=== PATIENT | male | born 1950 | race Hispanic/Latino ===

== ENCOUNTER → 2023-02-04 | Outpatient (CLI) | payer OTHER | END | disposition home or self-care (01) | LOC: RAH 08:29 | PROVIDERS: ATTEND Internal Medicine Gastroenterology | DX: K44.9 Diaphragmatic hernia without obstruction or gangrene (principal); R13.10 Dysphagia, unspecified; K21.9 Gastro-esophageal reflux disease without esophagitis | CPT/HCPCS: 74240 ==

== ENCOUNTER → 2023-07-12 | Outpatient (CLI) | payer OTHER ==
[~2023-07-12] MED LIST: ALBUMIN (HUMAN) 25% 200 ML IV SCH
[2023-07-12 10:48] LABS: BASOPHILS # (AUTO) 0.05 K/uL (0.00-0.20); BASOPHILS % (AUTO) 0.6 % (0.0-5.0); EOSINOPHILS # (AUTO) 0.03 K/uL (0.00-0.70); EOSINOPHILS % (AUTO) 0.4 % (0.0-8.0); HEMATOCRIT 33.3 % (42-54); IMMATURE GRANULOCYTE ABSOLUTE 0.03 K/uL (0-1); LYMPHOCYTES # (AUTO) 0.5 K/uL (1.0-4.8); LYMPHOCYTES % (AUTO) 6.6 % (21.0-51.0); MEAN CORPUSCULAR HEMOGLOBIN 31.5 pg (27.0-33.0); MEAN CORPUSCULAR VOLUME 95.4 fL (79-99); MONOCYTES # (AUTO) 0.5 K/uL (0.1-1.0); MONOCYTES % (AUTO) 5.7 % (3.0-13.0); NEUTROPHILS # (AUTO) 6.8 K/uL (1.8-7.7); NEUTROPHILS % (AUTO) 86.3 % (40.0-77.0); PLATELET COUNT (AUTO) 254 K/uL (130-400); RED BLOOD CELL COUNT(AUTO) 3.49 MIL/uL (4.50-6.20); RED CELL DISTRIBUTION WIDTH 14.7 % (11.0-15.5); WHITE BLOOD COUNT (AUTO) 7.9 K/uL (4.8-10.8)
[2023-07-12 11:10] LABS: ALBUMIN 2.3 g/dL (3.5-5.0); BILIRUBIN,TOTAL 0.6 mg/dL (0.2-1.0); CREATININE 4.7 mg/dL (0.5-1.5); POTASSIUM 3.7 mmol/L (3.5-5.1); TOTAL PROTEIN, SERUM 7.8 g/dL (6.0-8.3)
[2023-07-12 14:02] LABS: ALBUMIN,BODY FLUID 1.7 g/dL; TOTAL PROTEIN,BODY FLUID 4.8 g/dL
[2023-07-12 14:41] LABS: BODY FLUID RBC 90 /cu. mm.; BODY FLUID WBC 253 /cu. mm.
[2023-07-12 15:05] LABS: APPEARANCE BODY FLUID CLEAR (CLEAR); COLOR,BODY FLUID YELLOW (LT YELLOW); SPECIMENTYPE,BODY FLUID ASCITES; TOTAL VOLUME,BODY FLUID 15000 mL
[2023-07-12 15:31] LABS: BF LYMPHOCYTE 7 %; BF MACROPHAGE 85; BF MONOCYTE 1 %; BF OTHER CELLS 1; BF TOTAL CELLS COUNTED 100
== END | disposition home or self-care (01) ==
LOC: RAH 08:44
PROVIDERS: ATTEND Internal Medicine Gastroenterology
DX: R18.8 Other ascites (principal); K21.9 Gastro-esophageal reflux disease without esophagitis; Z79.01 Long term (current) use of anticoagulants
CPT/HCPCS: 49083; 84157; 80053; 85025; 89051; 87071; 87076; 87205; 82042; 36415; 88305; 88112; P9046; C1729; 96365

== ENCOUNTER → 2023-07-26 | Outpatient (CLI) | payer OTHER ==
[2023-07-26 09:02] LABS: INR 1.02 (0.85-1.15); PROTHROMBIN TIME 11.8 SEC (9.6-11.6)
[2023-07-26 09:03] LABS: PARTIAL THROMBOPLASTIN TIME 35.8 SEC (26.3-35.5)
[2023-07-26 14:02] LABS: BODY FLUID RBC 0 /cu. mm.; BODY FLUID WBC 293 /cu. mm.
[2023-07-26 14:03] LABS: APPEARANCE BODY FLUID CLEAR (CLEAR); SPECIMENTYPE,BODY FLUID ASCITES
[2023-07-26 14:04] LABS: COLOR,BODY FLUID YELLOW (LT YELLOW); TOTAL VOLUME,BODY FLUID 12200 mL
[2023-07-26 14:11] LABS: BF LYMPHOCYTE 20 %; BF MACROPHAGE 53; BF MONOCYTE 25 %; BF TOTAL CELLS COUNTED 100
== END | disposition home or self-care (01) ==
LOC: RAH 07:54
PROVIDERS: ATTEND Internal Medicine Gastroenterology
DX: R18.8 Other ascites (principal); M19.90 Unspecified osteoarthritis, unspecified site; E78.5 Hyperlipidemia, unspecified; K21.9 Gastro-esophageal reflux disease without esophagitis; R13.10 Dysphagia, unspecified; I73.89 Other specified peripheral vascular diseases; I13.2 Hypertensive heart and chronic kidney disease with heart failure and with stage 5 chronic kidney disease, or end stage renal disease; N18.6 End stage renal disease; Z99.2 Dependence on renal dialysis; Z90.49 Acquired absence of other specified parts of digestive tract; Z79.01 Long term (current) use of anticoagulants; Z79.899 Other long term (current) drug therapy
CPT/HCPCS: 49083; 89051; 85610; 85730; 87071; 87205; 36415; C1729; 96365

== ENCOUNTER → 2023-08-09 | Outpatient (CLI) | payer OTHER ==
[2023-08-09 15:43] LABS: ALBUMIN,BODY FLUID 1.5 g/dL; TOTAL PROTEIN,BODY FLUID 3.8 g/dL
[2023-08-09 16:10] LABS: BODY FLUID RBC 383 /cu. mm.; BODY FLUID WBC 100 /cu. mm.
[2023-08-09 16:17] LABS: APPEARANCE BODY FLUID CLEAR (CLEAR); COLOR,BODY FLUID YELLOW (LT YELLOW); SPECIMENTYPE,BODY FLUID ASCITES; TOTAL VOLUME,BODY FLUID 7700 mL
[2023-08-09 18:48] LABS: BF LYMPHOCYTE 3 %; BF MACROPHAGE 92; BF OTHER CELLS 2; BF TOTAL CELLS COUNTED 100
== END | disposition home or self-care (01) ==
LOC: RAH 09:07
PROVIDERS: ATTEND Internal Medicine Gastroenterology
DX: R18.8 Other ascites (principal); E78.5 Hyperlipidemia, unspecified; I73.9 Peripheral vascular disease, unspecified; K21.9 Gastro-esophageal reflux disease without esophagitis; M19.90 Unspecified osteoarthritis, unspecified site; R93.2 Abnormal findings on diagnostic imaging of liver and biliary tract; I13.2 Hypertensive heart and chronic kidney disease with heart failure and with stage 5 chronic kidney disease, or end stage renal disease; N18.6 End stage renal disease; I50.9 Heart failure, unspecified; Z79.01 Long term (current) use of anticoagulants; Z98.890 Other specified postprocedural states; Z90.49 Acquired absence of other specified parts of digestive tract; Z99.2 Dependence on renal dialysis
CPT/HCPCS: 49083; 84157; 89051; 87071; 87205; 82042; 88305; 88112; P9046; C1729

== ENCOUNTER → 2023-08-23 | Outpatient (CLI) | payer OTHER ==
[2023-08-23 11:35] LABS: APPEARANCE BODY FLUID CLEAR (CLEAR); COLOR,BODY FLUID YELLOW (LT YELLOW); SPECIMENTYPE,BODY FLUID ASCITES; TOTAL VOLUME,BODY FLUID 7200 mL
[2023-08-23 11:38] LABS: ALBUMIN,BODY FLUID 1.5 g/dL; TOTAL PROTEIN,BODY FLUID 3.7 g/dL
[2023-08-23 12:12] LABS: BODY FLUID RBC 0 /cu. mm.; BODY FLUID WBC 533 /cu. mm.
[2023-08-23 12:35] LABS: BF LYMPHOCYTE 9 %; BF MESOTHELIAL 81 %; BF MONOCYTE 10 %; BF TOTAL CELLS COUNTED 100
== END | disposition home or self-care (01) ==
LOC: RAH 09:30
PROVIDERS: ATTEND Internal Medicine Gastroenterology
DX: R18.8 Other ascites (principal); M19.90 Unspecified osteoarthritis, unspecified site; E78.5 Hyperlipidemia, unspecified; R13.10 Dysphagia, unspecified; R93.3 Abnormal findings on diagnostic imaging of other parts of digestive tract; K21.9 Gastro-esophageal reflux disease without esophagitis; E11.51 Type 2 diabetes mellitus with diabetic peripheral angiopathy without gangrene; I13.2 Hypertensive heart and chronic kidney disease with heart failure and with stage 5 chronic kidney disease, or end stage renal disease; I50.9 Heart failure, unspecified; N18.6 End stage renal disease; Z99.2 Dependence on renal dialysis; Z79.01 Long term (current) use of anticoagulants; Z79.899 Other long term (current) drug therapy; Z90.49 Acquired absence of other specified parts of digestive tract
CPT/HCPCS: 49083; 84157; 89051; 87071; 87076; 87205; 82042; 88305; 88112; P9046; C1729

== ENCOUNTER → 2023-09-19 | Outpatient (CLI) | payer OTHER ==
[2023-09-19 10:25] LABS: BASOPHILS # (AUTO) 0.05 K/uL (0.00-0.20); BASOPHILS % (AUTO) 0.7 % (0.0-5.0); EOSINOPHILS # (AUTO) 0.19 K/uL (0.00-0.70); EOSINOPHILS % (AUTO) 2.5 % (0.0-8.0); HEMATOCRIT 28.1 % (42-54); IMMATURE GRANULOCYTE ABSOLUTE 0.04 K/uL (0-1); LYMPHOCYTES # (AUTO) 0.8 K/uL (1.0-4.8); LYMPHOCYTES % (AUTO) 10.2 % (21.0-51.0); MEAN CORPUSCULAR HEMOGLOBIN 31.4 pg (27.0-33.0); MEAN CORPUSCULAR HGB CONC 32.4 g/dL (32.0-36.0); MEAN CORPUSCULAR VOLUME 96.9 fL (79-99); MONOCYTES # (AUTO) 0.6 K/uL (0.1-1.0); MONOCYTES % (AUTO) 7.3 % (3.0-13.0); NEUTROPHILS % (AUTO) 78.8 % (40.0-77.0); PLATELET COUNT (AUTO) 238 K/uL (130-400); RED CELL DISTRIBUTION WIDTH 13.9 % (11.0-15.5); WHITE BLOOD COUNT (AUTO) 7.7 K/uL (4.8-10.8)
[2023-09-19 10:36] LABS: INR 0.98 (0.85-1.15); PROTHROMBIN TIME 11.4 SEC (9.6-11.6)
[2023-09-19 10:37] LABS: PARTIAL THROMBOPLASTIN TIME 36.5 SEC (26.3-35.5)
[2023-09-19 10:45] LABS: ALBUMIN 2.2 g/dL (3.5-5.0); BILIRUBIN,TOTAL 0.4 mg/dL (0.2-1.0); CREATININE 4.7 mg/dL (0.5-1.5); POTASSIUM 3.9 mmol/L (3.5-5.1); TOTAL PROTEIN, SERUM 7.2 g/dL (6.0-8.3)
[2023-09-19] MEDS: ALBUMIN (HUMAN) 25% 200 ML IV SCH (12:45)
[2023-09-19 15:11] LABS: BODY FLUID RBC 88 /cu. mm.; BODY FLUID WBC 153 /cu. mm.
[2023-09-19 15:14] LABS: APPEARANCE BODY FLUID SLIGHTLY CLOUDY (CLEAR); COLOR,BODY FLUID YELLOW (LT YELLOW); SPECIMENTYPE,BODY FLUID ASCITES; TOTAL VOLUME,BODY FLUID 9500 mL
[2023-09-19 17:29] LABS: BF LYMPHOCYTE 6 %; BF MACROPHAGE 87; BF MONOCYTE 1 %; BF OTHER CELLS 4; BF TOTAL CELLS COUNTED 100
== END | disposition home or self-care (01) ==
LOC: RAH 09:05
PROVIDERS: ATTEND Internal Medicine Gastroenterology
DX: R18.8 Other ascites (principal); E11.22 Type 2 diabetes mellitus with diabetic chronic kidney disease; I13.2 Hypertensive heart and chronic kidney disease with heart failure and with stage 5 chronic kidney disease, or end stage renal disease; N18.6 End stage renal disease; I50.9 Heart failure, unspecified; E78.5 Hyperlipidemia, unspecified; K21.9 Gastro-esophageal reflux disease without esophagitis; M19.90 Unspecified osteoarthritis, unspecified site; Z90.49 Acquired absence of other specified parts of digestive tract; Z98.890 Other specified postprocedural states; Z79.01 Long term (current) use of anticoagulants; Z79.899 Other long term (current) drug therapy; Z99.2 Dependence on renal dialysis
CPT/HCPCS: 49083; 80053; 85025; 89051; 85610; 85730; 87071; 87205; 36415; P9046; C1729; 96365

== ENCOUNTER → 2023-10-03 | Outpatient (CLI) | payer OTHER ==
[2023-10-03] MEDS: ALBUMIN (HUMAN) 25% 200 ML IV SCH (09:56)
[2023-10-03 14:37] LABS: SPECIMENTYPE,BODY FLUID ASCITES
[2023-10-03 14:38] LABS: APPEARANCE BODY FLUID CLEAR (CLEAR); COLOR,BODY FLUID YELLOW (LT YELLOW); TOTAL VOLUME,BODY FLUID 7000 mL
[2023-10-03 14:47] LABS: BODY FLUID RBC 216 /cu. mm.; BODY FLUID WBC 163 /cu. mm.
[2023-10-03 17:24] LABS: BF LYMPHOCYTE 49 %; BF MACROPHAGE 35; BF MESOTHELIAL 8 %; BF MONOCYTE 4 %; BF TOTAL CELLS COUNTED 100
== END | disposition home or self-care (01) ==
LOC: RAH 08:48
PROVIDERS: ATTEND Internal Medicine Gastroenterology
DX: R18.8 Other ascites (principal); E11.22 Type 2 diabetes mellitus with diabetic chronic kidney disease; I13.2 Hypertensive heart and chronic kidney disease with heart failure and with stage 5 chronic kidney disease, or end stage renal disease; N18.6 End stage renal disease; I50.9 Heart failure, unspecified; E78.5 Hyperlipidemia, unspecified; M19.90 Unspecified osteoarthritis, unspecified site; K21.9 Gastro-esophageal reflux disease without esophagitis; Z90.49 Acquired absence of other specified parts of digestive tract; Z98.890 Other specified postprocedural states; Z79.899 Other long term (current) drug therapy; Z99.2 Dependence on renal dialysis
CPT/HCPCS: 49083; 89051; 87071; 87205; P9046; C1729

== ENCOUNTER 2023-11-14 09:30 | Emergency (ER) | payer OTHER ==
[~2023-11-14] VITALS: Ht 175.3 cm; Wt 68.5 kg
[2023-11-14] MEDS: ACETAMINOPHEN 500 MG TABLET PO ONE (10:00)
[2023-11-14 10:02] LABS: BASOPHILS # (AUTO) 0.03 K/uL (0.00-0.20); BASOPHILS % (AUTO) 0.5 % (0.0-5.0); EOSINOPHILS # (AUTO) 0.07 K/uL (0.00-0.70); EOSINOPHILS % (AUTO) 1.1 % (0.0-8.0); HEMATOCRIT 23.6 % (42-54); IMMATURE GRANULOCYTE ABSOLUTE 0.02 K/uL (0-1); LYMPHOCYTES # (AUTO) 0.6 K/uL (1.0-4.8); LYMPHOCYTES % (AUTO) 9.2 % (21.0-51.0); MEAN CORPUSCULAR HEMOGLOBIN 31.5 pg (27.0-33.0); MEAN CORPUSCULAR HGB CONC 33.5 g/dL (32.0-36.0); MONOCYTES # (AUTO) 0.4 K/uL (0.1-1.0); MONOCYTES % (AUTO) 6.2 % (3.0-13.0); NEUTROPHILS # (AUTO) 5.5 K/uL (1.8-7.7); NEUTROPHILS % (AUTO) 82.7 % (40.0-77.0); PLATELET COUNT (AUTO) 241 K/uL (130-400); RED BLOOD CELL COUNT(AUTO) 2.51 MIL/uL (4.50-6.20); RED CELL DISTRIBUTION WIDTH 14.2 % (11.0-15.5); WHITE BLOOD COUNT (AUTO) 6.6 K/uL (4.8-10.8)
[2023-11-14 10:09] LABS: CREATININE 4.8 mg/dL (0.5-1.3); POTASSIUM 3.6 mmol/L (3.5-5.1)
[2023-11-14 10:17] LABS: ALBUMIN 2.4 g/dL (3.5-5.0); BILIRUBIN,TOTAL 0.4 mg/dL (0.2-1.0)
[2023-11-14 13:16] VITALS: BP 133/60; PULSE 71; RESP 14; O2SAT 98
== END 2023-11-14 13:15 | disposition home or self-care (01) ==
LOC: EDH 09:30
DX: I12.0 Hypertensive chronic kidney disease with stage 5 chronic kidney disease or end stage renal disease (principal); E11.22 Type 2 diabetes mellitus with diabetic chronic kidney disease; N18.6 End stage renal disease; D63.1 Anemia in chronic kidney disease; R55 Syncope and collapse; E87.1 Hypo-osmolality and hyponatremia; Z99.2 Dependence on renal dialysis
CPT/HCPCS: 36415; 70450; 80053; 84484; 85025; 93005

== ENCOUNTER → 2023-11-14 | Outpatient (CLI) | payer OTHER ==
[2023-11-19] MEDS: ALBUMIN (HUMAN) 25% 200 ML IV SCH (09:59)
[2023-11-19 13:26] LABS: BODY FLUID RBC 1983 /cu. mm.; BODY FLUID WBC 809 /cu. mm.
[2023-11-19 14:22] LABS: APPEARANCE BODY FLUID SLIGHTLY CLOUDY (CLEAR); COLOR,BODY FLUID YELLOW (LT YELLOW); SPECIMENTYPE,BODY FLUID ASCITES; TOTAL VOLUME,BODY FLUID 8000 mL
[2023-11-19 14:26] LABS: BF LYMPHOCYTE 14 %; BF MACROPHAGE 51; BF MONOCYTE 33 %; BF TOTAL CELLS COUNTED 100
== END | disposition home or self-care (01) ==
LOC: RAH 08:31
PROVIDERS: ATTEND Internal Medicine Gastroenterology
DX: R18.8 Other ascites (principal); E78.5 Hyperlipidemia, unspecified; K21.9 Gastro-esophageal reflux disease without esophagitis; M19.90 Unspecified osteoarthritis, unspecified site; I13.2 Hypertensive heart and chronic kidney disease with heart failure and with stage 5 chronic kidney disease, or end stage renal disease; E11.22 Type 2 diabetes mellitus with diabetic chronic kidney disease; I50.9 Heart failure, unspecified; N18.6 End stage renal disease; R93.89 Abnormal findings on diagnostic imaging of other specified body structures; R13.10 Dysphagia, unspecified; Z79.899 Other long term (current) drug therapy; Z90.49 Acquired absence of other specified parts of digestive tract; Z99.2 Dependence on renal dialysis
CPT/HCPCS: 96365; 89051; 87071; 87205; P9046

== ENCOUNTER → 2024-01-16 | Outpatient (CLI) | payer OTHER ==
[~2024-01-16] MED LIST changes: +ALBUMIN (HUMAN) 25% 200 ML IV ONE; -ALBUMIN (HUMAN) 25% 200 ML IV SCH
[2024-01-16 14:18] LABS: BODY FLUID RBC 79 /cu. mm.; BODY FLUID WBC 151 /cu. mm.
[2024-01-16 14:59] LABS: BF LYMPHOCYTE 74 %; BF MACROPHAGE 20; BF MONOCYTE 5 %; BF TOTAL CELLS COUNTED 100
[2024-01-16 15:02] LABS: SPECIMENTYPE,BODY FLUID ASCITES
[2024-01-16 15:03] LABS: APPEARANCE BODY FLUID SLIGHTLY CLOUDY (CLEAR); COLOR,BODY FLUID YELLOW (LT YELLOW); TOTAL VOLUME,BODY FLUID 4600 mL
== END | disposition home or self-care (01) ==
LOC: RAH 09:33
PROVIDERS: ATTEND Internal Medicine Gastroenterology
DX: R18.8 Other ascites (principal); R13.10 Dysphagia, unspecified; R93.3 Abnormal findings on diagnostic imaging of other parts of digestive tract; I73.89 Other specified peripheral vascular diseases; R93.89 Abnormal findings on diagnostic imaging of other specified body structures; I13.2 Hypertensive heart and chronic kidney disease with heart failure and with stage 5 chronic kidney disease, or end stage renal disease; I50.9 Heart failure, unspecified; N18.6 End stage renal disease; M19.90 Unspecified osteoarthritis, unspecified site; K21.9 Gastro-esophageal reflux disease without esophagitis; E78.5 Hyperlipidemia, unspecified; Z90.49 Acquired absence of other specified parts of digestive tract; Z79.899 Other long term (current) drug therapy
CPT/HCPCS: 49083; 89051; P9046; C1729

== ENCOUNTER → 2024-01-30 | Outpatient (CLI) | payer OTHER ==
[2024-01-30 12:04] LABS: BASOPHILS # (AUTO) 0.04 K/uL (0.00-0.20); BASOPHILS % (AUTO) 0.7 % (0.0-5.0); EOSINOPHILS # (AUTO) 0.14 K/uL (0.00-0.70); EOSINOPHILS % (AUTO) 2.6 % (0.0-8.0); HEMATOCRIT 30.9 % (42-54); IMMATURE GRANULOCYTE ABSOLUTE 0.02 K/uL (0-1); LYMPHOCYTES % (AUTO) 17.6 % (21.0-51.0); MEAN CORPUSCULAR HEMOGLOBIN 30.1 pg (27.0-33.0); MEAN CORPUSCULAR VOLUME 91.2 fL (79-99); MONOCYTES # (AUTO) 0.5 K/uL (0.1-1.0); MONOCYTES % (AUTO) 8.7 % (3.0-13.0); NEUTROPHILS # (AUTO) 3.8 K/uL (1.8-7.7); PLATELET COUNT (AUTO) 223 K/uL (130-400); RED BLOOD CELL COUNT(AUTO) 3.39 MIL/uL (4.50-6.20); RED CELL DISTRIBUTION WIDTH 14.6 % (11.0-15.5); WHITE BLOOD COUNT (AUTO) 5.4 K/uL (4.8-10.8)
[2024-01-30 12:30] LABS: INR 1.12 (0.85-1.15); PARTIAL THROMBOPLASTIN TIME 30.3 SEC (26.3-35.5); PROTHROMBIN TIME 11.8 SEC (9.6-11.6)
[2024-01-30 12:31] LABS: ALBUMIN 2.6 g/dL (3.5-5.0); BILIRUBIN,TOTAL 0.4 mg/dL (0.2-1.0); CREATININE 5.6 mg/dL (0.5-1.3); POTASSIUM 4.4 mmol/L (3.5-5.1); TOTAL PROTEIN, SERUM 6.9 g/dL (6.0-8.3)
[2024-01-30 17:34] LABS: BF LYMPHOCYTE 11 %; BF MACROPHAGE 87; BF TOTAL CELLS COUNTED 100
[2024-01-30 17:37] LABS: APPEARANCE BODY FLUID SLIGHTLY CLOUDY (CLEAR); COLOR,BODY FLUID YELLOW (LT YELLOW); SPECIMENTYPE,BODY FLUID ASCITES; TOTAL VOLUME,BODY FLUID 900 mL
[2024-01-30 18:32] LABS: BODY FLUID RBC 234 /cu. mm.; BODY FLUID WBC 130 /cu. mm.
== END | disposition home or self-care (01) ==
LOC: RAH 09:48
PROVIDERS: ATTEND Internal Medicine Gastroenterology
DX: R18.8 Other ascites (principal); R13.10 Dysphagia, unspecified; K74.01 Hepatic fibrosis, early fibrosis; R19.7 Diarrhea, unspecified; R93.3 Abnormal findings on diagnostic imaging of other parts of digestive tract; I73.89 Other specified peripheral vascular diseases; I13.2 Hypertensive heart and chronic kidney disease with heart failure and with stage 5 chronic kidney disease, or end stage renal disease; I50.9 Heart failure, unspecified; N18.6 End stage renal disease; M19.90 Unspecified osteoarthritis, unspecified site; K21.9 Gastro-esophageal reflux disease without esophagitis; E78.5 Hyperlipidemia, unspecified; Z99.2 Dependence on renal dialysis; Z79.899 Other long term (current) drug therapy
CPT/HCPCS: 49083; 80053; 85025; 89051; 85610; 85730; 36415; P9046; C1729

== ENCOUNTER → 2024-03-12 | Outpatient (CLI) | payer OTHER ==
[2024-03-12 11:27] LABS: BASOPHILS # (AUTO) 0.04 K/uL (0.00-0.20); BASOPHILS % (AUTO) 0.8 % (0.0-5.0); EOSINOPHILS # (AUTO) 0.06 K/uL (0.00-0.70); EOSINOPHILS % (AUTO) 1.3 % (0.0-8.0); HEMATOCRIT 30.7 % (42-54); IMMATURE GRANULOCYTE ABSOLUTE 0.01 K/uL (0-1); LYMPHOCYTES # (AUTO) 0.8 K/uL (1.0-4.8); LYMPHOCYTES % (AUTO) 16.9 % (21.0-51.0); MEAN CORPUSCULAR HEMOGLOBIN 30.4 pg (27.0-33.0); MEAN CORPUSCULAR HGB CONC 33.6 g/dL (32.0-36.0); MEAN CORPUSCULAR VOLUME 90.6 fL (79-99); MONOCYTES # (AUTO) 0.4 K/uL (0.1-1.0); MONOCYTES % (AUTO) 8.3 % (3.0-13.0); NEUTROPHILS # (AUTO) 3.5 K/uL (1.8-7.7); NEUTROPHILS % (AUTO) 72.5 % (40.0-77.0); PLATELET COUNT (AUTO) 245 K/uL (130-400); RED BLOOD CELL COUNT(AUTO) 3.39 MIL/uL (4.50-6.20); RED CELL DISTRIBUTION WIDTH 14.6 % (11.0-15.5); WHITE BLOOD COUNT (AUTO) 4.8 K/uL (4.8-10.8)
[2024-03-12 11:30] LABS: INR 1.19 (0.85-1.15); PROTHROMBIN TIME 12.7 SEC (9.6-11.6)
[2024-03-12 11:31] LABS: PARTIAL THROMBOPLASTIN TIME 32.9 SEC (26.3-35.5)
[2024-03-12 11:40] LABS: ALBUMIN 2.7 g/dL (3.5-5.0); BILIRUBIN,TOTAL 0.4 mg/dL (0.2-1.0); CREATININE 5.4 mg/dL (0.5-1.3); POTASSIUM 3.7 mmol/L (3.5-5.1); TOTAL PROTEIN, SERUM 7.3 g/dL (6.0-8.3)
[2024-03-12 14:26] LABS: BODY FLUID RBC 0 /cu. mm.; BODY FLUID WBC 208 /cu. mm.
[2024-03-12 14:51] LABS: APPEARANCE BODY FLUID CLEAR (CLEAR); COLOR,BODY FLUID YELLOW (LT YELLOW); SPECIMENTYPE,BODY FLUID ASCITES; TOTAL VOLUME,BODY FLUID 5800 mL
[2024-03-12 14:59] LABS: BF LYMPHOCYTE 5 %; BF MACROPHAGE 58; BF MESOTHELIAL 33 %; BF MONOCYTE 4 %; BF TOTAL CELLS COUNTED 100
== END | disposition home or self-care (01) ==
LOC: RAH 09:03
PROVIDERS: ATTEND Internal Medicine Gastroenterology
DX: R18.8 Other ascites (principal); K74.01 Hepatic fibrosis, early fibrosis; K21.9 Gastro-esophageal reflux disease without esophagitis; M19.90 Unspecified osteoarthritis, unspecified site; E78.5 Hyperlipidemia, unspecified; I73.89 Other specified peripheral vascular diseases; I13.2 Hypertensive heart and chronic kidney disease with heart failure and with stage 5 chronic kidney disease, or end stage renal disease; N18.6 End stage renal disease; I50.9 Heart failure, unspecified; Z79.01 Long term (current) use of anticoagulants; Z79.899 Other long term (current) drug therapy; Z90.49 Acquired absence of other specified parts of digestive tract; Z99.2 Dependence on renal dialysis
CPT/HCPCS: 49083; 80053; 85025; 89051; 85610; 85730; 36415; P9046; C1729; 96365

== ENCOUNTER → 2024-05-07 | Outpatient (CLI) | payer OTHER ==
[2024-05-07 10:05] LABS: BASOPHILS # (AUTO) 0.06 K/uL (0.00-0.20); BASOPHILS % (AUTO) 1.2 % (0.0-5.0); EOSINOPHILS # (AUTO) 0.22 K/uL (0.00-0.70); EOSINOPHILS % (AUTO) 4.4 % (0.0-8.0); HEMATOCRIT 25.7 % (42-54); IMMATURE GRANULOCYTE ABSOLUTE 0.02 K/uL (0-1); LYMPHOCYTES # (AUTO) 0.6 K/uL (1.0-4.8); LYMPHOCYTES % (AUTO) 11.8 % (21.0-51.0); MEAN CORPUSCULAR HEMOGLOBIN 30.4 pg (27.0-33.0); MEAN CORPUSCULAR HGB CONC 32.7 g/dL (32.0-36.0); MEAN CORPUSCULAR VOLUME 93.1 fL (79-99); MONOCYTES # (AUTO) 0.4 K/uL (0.1-1.0); MONOCYTES % (AUTO) 7.6 % (3.0-13.0); NEUTROPHILS # (AUTO) 3.7 K/uL (1.8-7.7); NEUTROPHILS % (AUTO) 74.6 % (40.0-77.0); PLATELET COUNT (AUTO) 192 K/uL (130-400); RED BLOOD CELL COUNT(AUTO) 2.76 MIL/uL (4.50-6.20)
[2024-05-07 10:19] LABS: ALBUMIN 2.7 g/dL (3.5-5.0); BILIRUBIN,TOTAL 0.5 mg/dL (0.2-1.0); CREATININE 4.8 mg/dL (0.5-1.3); POTASSIUM 3.8 mmol/L (3.5-5.1); TOTAL PROTEIN, SERUM 7.2 g/dL (6.0-8.3)
[2024-05-07 10:27] LABS: INR 1.17 (0.85-1.15); PROTHROMBIN TIME 12.5 SEC (9.6-11.6)
[2024-05-07 10:28] LABS: PARTIAL THROMBOPLASTIN TIME 32.6 SEC (26.3-35.5)
[2024-05-07 15:30] LABS: BODY FLUID RBC 193 /cu. mm.; BODY FLUID WBC 32 /cu. mm.
[2024-05-07 15:54] LABS: APPEARANCE BODY FLUID SLIGHTLY CLOUDY (CLEAR); BF LYMPHOCYTE 83 %; BF MESOTHELIAL 7 %; BF MONOCYTE 2 %; BF TOTAL CELLS COUNTED 100; COLOR,BODY FLUID YELLOW (LT YELLOW); SPECIMENTYPE,BODY FLUID ASCITES; TOTAL VOLUME,BODY FLUID 4300 mL
== END | disposition home or self-care (01) ==
LOC: RAH 09:01
PROVIDERS: ATTEND Internal Medicine Gastroenterology
DX: R18.8 Other ascites (principal); R19.7 Diarrhea, unspecified; R12 Heartburn; K74.01 Hepatic fibrosis, early fibrosis; I73.89 Other specified peripheral vascular diseases; R93.89 Abnormal findings on diagnostic imaging of other specified body structures; M19.90 Unspecified osteoarthritis, unspecified site; I13.2 Hypertensive heart and chronic kidney disease with heart failure and with stage 5 chronic kidney disease, or end stage renal disease; I50.9 Heart failure, unspecified; N18.6 End stage renal disease; K21.9 Gastro-esophageal reflux disease without esophagitis; E78.5 Hyperlipidemia, unspecified; Z90.49 Acquired absence of other specified parts of digestive tract; Z79.899 Other long term (current) drug therapy
CPT/HCPCS: 49083; 80053; 85025; 89051; 85610; 85730; 36415; P9046; C1729; 96365

== ENCOUNTER → 2025-03-02 | Outpatient (CLI) | payer OTHER ==
[~2025-03-02] MED LIST changes: -ALBUMIN (HUMAN) 25% 200 ML IV ONE; +ALBUMIN HUMAN 25% 100 ML IV ONE
[2025-03-02 09:30] LABS: IMMATURE GRANULOCYTE ABSOLUTE 0.01 K/uL (0-1); NUCLEATED RED BLOOD CELLS 0.0 % (0.0-0.19); PLATELET COUNT (AUTO) 157 K/uL (130-400); RED BLOOD CELL COUNT(AUTO) 4.06 MIL/uL (4.50-6.20); RED CELL DISTRIBUTION WIDTH 17.3 % (11.0-15.5); WHITE BLOOD COUNT (AUTO) 5.6 K/uL (4.8-10.8)
[2025-03-02 09:40] LABS: INR 1.3 (0.85-1.15)
[2025-03-02 09:44] LABS: ASPARTATE AMINOTRANSFERASE 16.0 U/L (10-37); CREATININE 4.4 mg/dL (0.5-1.3); GLOMERULAR FILTR. RATE CALC 13.0 mL/min (>90); GLUCOSE,RANDOM 134.0 mg/dL (70-105); SODIUM SERUM 140.0 mmol/L (136-145); TOTAL PROTEIN, SERUM 7.1 g/dL (6.0-8.3); UREA NITROGEN, BLOOD 18.0 mg/dL (7-18)
--- NOTE | 2025-03-02 10:40 | NUR ---
ULTRASOUND GUIDED PARACENTESIS PROCEDURE PERFORMED BY DR. Edwin CONTRERAS. PUNCTURE SITE RLQ AND PATIENT TOLERATED PROCEDURE WELL. TOTAL REMOVED 5.5 LITERS OF CLOUDY YELLOW FLUID. ALBUMIN 25% 50 GRAMS GIVEN PER PROTOCOL. SPECIMEN SENT TO LAB. END OF PROCEDURE AT 1025. CATHETER REMOVED AND DRESSING APPLIED- NO BLEEDING NOTED. DISCHARGE INSTRUCTIONS GIVEN TO PATIENT AND VERBALIZED UNDERSTANDING. DISCHARGED VIA WHEELCHAIR AT 1035. AAO X3 WITH NO C/O PAIN.
[2025-03-02 13:02] LABS: ALBUMIN,BODY FLUID 1.3 g/dL; TOTAL PROTEIN,BODY FLUID 3.4 g/dL
[2025-03-02 13:05] LABS: BODY FLUID RBC 0 /cu. mm.; BODY FLUID WBC 432 /cu. mm.
--- NOTE | 2025-03-02 13:06 | HMCIMG ---
US ABDOMINAL PARACENTESIS IR REASON: ASCITES TECHNIQUE: Paracentesis was performed with ultrasound guidance. The puncture site was selected in the Right lower quadrant and overlying skin prepped and draped in a sterile fashion. 1% Xylocaine infiltration was performed. Catheter was placed in the fluid using trocar technique. 5.5 L were removed. Fluid sample was submitted for laboratory evaluation. The patient showed no evidence of complication during the procedure. Patient tolerated procedure well. IMPRESSION: 1. Ultrasound-guided paracentesis.
[2025-03-02 13:10] LABS: APPEARANCE BODY FLUID CLEAR (CLEAR); COLOR,BODY FLUID LT YELLOW (LT YELLOW); SPECIMENTYPE,BODY FLUID ASCITES; TOTAL VOLUME,BODY FLUID 5.5 mL
[2025-03-02 13:29] LABS: BF LYMPHOCYTE 12 %; BF MACROPHAGE 86; BF MONOCYTE 2 %; BF TOTAL CELLS COUNTED 100
== END | disposition home or self-care (01) ==
LOC: RAH 08:46
PROVIDERS: ATTEND Internal Medicine Gastroenterology
DX: R18.8 Other ascites (principal); K74.01 Hepatic fibrosis, early fibrosis; R19.5 Other fecal abnormalities; I73.89 Other specified peripheral vascular diseases; R93.89 Abnormal findings on diagnostic imaging of other specified body structures; I50.9 Heart failure, unspecified; N18.6 End stage renal disease; M19.90 Unspecified osteoarthritis, unspecified site; K21.9 Gastro-esophageal reflux disease without esophagitis; E78.5 Hyperlipidemia, unspecified; Z99.2 Dependence on renal dialysis; Z90.49 Acquired absence of other specified parts of digestive tract; Z98.890 Other specified postprocedural states; Z91.011 Allergy to milk products; Z88.8 Allergy status to other drugs, medicaments and biological substances
CPT/HCPCS: 49083; 84157; 80053; 85025; 89051; 85610; 85730; 87071; 87205; 82042; 36415; 88108; 88305; P9046 ×2; C1729